=== PATIENT | female | born 1990 | race Caucasian/White ===

== ENCOUNTER 2017-08-31 12:02 | Emergency (ER) | payer MEDICAID ==
[~2017-08-31] VITALS: Ht 157.5 cm; Wt 65.8 kg
[2017-08-31 12:23] VITALS: BP_SYST 112
[2017-08-31] MEDS ORDERED: HYDROmorphone 1 MG INJ. 1 MG/ML AMPUL IM ONE (13:00)
[2017-08-31] MEDS ORDERED: ONDANSETRON HCL 4 MG/2 ML VIAL IM ONE (13:15)
== END 2017-08-31 13:42 | disposition home or self-care (01) ==
LOC: SED 12:02
DX: G89.18 Other acute postprocedural pain (principal); F17.200 Nicotine dependence, unspecified, uncomplicated
CPT/HCPCS: 81025; 96372; 99284; J1170; J2405